=== PATIENT | male | born 1955 | race Caucasian/White ===

== ENCOUNTER 2016-09-04 06:44 | Day surgery (SDC) | payer OTHER ==
[2016-09-04] VITALS (7 sets, daily range): BP systolic 116–148; BP diastolic 75–87; PULSE 46–66; RESP 10–16; O2SAT 95–99
[~2016-09-04] VITALS: Ht 182.9 cm; Wt 96.0 kg
[~2016-09-04 06:44] MED LIST: IBUP400T22 PO; KEN25CR EXT; Lactated Ringer's 1,000 ML IV SCH
[2016-09-04] MEDS ORDERED: MetoCLOpramide 5 mg/mL 2 mL Inj ONE (06:45)
[2016-09-04] MEDS ORDERED: fentaNYL-PF 50 mCg/mL 2 mL Inj ONE (06:45)
[2016-09-04] MEDS ORDERED: Ondansetron 2 mg/mL 2 mL Inj ONE (06:45)
[2016-09-04] MEDS ORDERED: Propofol 10,000 mCg/mL 20 mL Inj ONE (06:45)
[2016-09-04] MEDS ORDERED: Lactated Ringer's 1,000 ML IV ONE (07:32)
[2016-09-04] MEDS ORDERED: Ondansetron 2 mg/mL 2 mL Inj IVPUSH PRN (09:00)
[2016-09-04] MEDS ORDERED: Dexamethasone 4 mg/mL Inj IVPUSH PRN (09:00)
[2016-09-04] MEDS ORDERED: HYDROmorphone 1 mg/mL Inj IVPUSH PRN (09:00)
[2016-09-04] MEDS ORDERED: Lactated Ringer's 1,000 ML IV SCH (09:00)
[2016-09-04] MEDS ORDERED: fentaNYL-PF 50 mCg/mL 2 mL Inj IVPUSH PRN (09:00)
[2016-09-04] MEDS ORDERED: MetoCLOpramide 5 mg/mL 2 mL Inj IVPUSH PRN (09:00)
[2016-09-04] MEDS ORDERED: Lactated Ringer's 500 ML IV PRN (09:00)
[2016-09-04] MEDS ORDERED: EPHEDrine Sulfate 50 mg/mL Inj IVPUSH PRN (09:00)
[2016-09-04] MEDS ORDERED: Phenylephrine 10,000 mCg/mL Inj IVPUSH PRN (09:00)
--- NOTE | 2016-09-04 09:00 | PCM.HPANE ---
Patient Data Surgeon Admitting Provider: Attending Provider:Nathan Charles MD Primary Care Physician:Hung Reyes Other Provider:Mitra Terry Anesthesia Reason for Visit Right Kidney Stone Ht/WT & BMI Height (Feet): 6 Height (Inches): 0.00 Weight (Kilograms): 96.000 Body Mass Index 28.00 Allergies Coded Allergies: No Known Allergies (Unverified , 09/02/16) Past Anesthesia History Anesthesia History: Denies:: Anesthesia Reactions, Malignant Hyperthermia Diabetes History Hx Diabetes?: No MRSA MRSA: No Medications Home Meds Incl Beta Selina: No Reported Medications Ibuprofen 400 Mg [id number] Mg PO Q8H PRN For Pain Ref 0 09/02/16 Triamcinolone Acet (Triamcinolone Acetonide Cream)1 Applic/0.25 Gm Cr1 Applic EXT BID #60 GM Ref 0 01/17/16 History History of ENT Problems?: Yes Other HEENT Pertinent History: S/P DENTAL IMPLANTS, WISDOM TEETH EXTRACTIONS Hx of Heart Problems?: No Cardiovascular History: Positive for:: Irregular Heartbeat (natural bradycardia - resting HR 48 on average) Denies:: AICD Heart Murmur Hypertension Pacemaker Hx of Respiratory Problem?: No Respiratory History: Denies:: Oxygen Administration Use of C-PAP Machine Hx Neurologic Problems?: Yes Other Neurological Pertinent: HX HSV Hx of GI Problems?: Yes Gastrointestinal History: Denies:: Rectal Bleeding (HX COLON POLYPS) Other GI Pertinent History: S/P UMBILICAL HERNIA RPR Hx of Problems?: Yes Genitourinary History: Positive for:: Kidney Stones (S/P LT ESWL/STENT RT KIDNEY STONE=CURRENT PROBLEM) Other Pertinent History: C/OF NOCTURIA Male Hx: Positive for:: Testicular Surgery (S/P VASECTOMY) Denies:: Prostate Problems Scrotal Mass Skin History: Positive for:: History Skin Disorders? (psoriasis-extremities) Denies:: Pressure Ulcers Hx Musculoskeletal Problems?: Yes Musculoskeletal History: Positive for:: Musculoskeletal Trauma (HX FX 1964) Hx of Psycho/Social Problems?: No Hx Surgeries?: Yes (WISDOM TEETH EXTRACTIONS,DENTAL IMPLANTS,UMB HERNIA RPR, VASECTOMY,LT ESWL/S) Hx Any Other Health Problems?: No Other History: Denies:: Cancer Endocrine Disease Hospitalization Thyroid Disease History Blood Transfusions: Denies:: Blood Transfusions Hx Diabetes: No Hx Alcohol Use: YesHx Substance Use: No Smoking Status: Former Smoker Have You Smoked inLast 12 mo: No Stop/Bang S-Snoring: Do You Snore Loudly: No T-Tired: feel tired, fatigued: No O-Obsered: Observed not breath: No P-Blood Pressure: treated: No B- Body Mass Index > 35 kg/m2: No A- Age over 50: Yes N- Neck Large Circumference: No G- Gender Male: Yes ANDREA Total Score: 2 Risk Assessment Category Category 1A: Patient has history of documented sleep apnea, and HAS NOT received any narcotic, sedative or anesthesia administration during this stay. Category 1B: Patient has history of documented sleep apnea, and HAS received any narcotic , sedative or anesthesia administration during this stay Category 2: Patient has SUSPECTED Obstructive Sleep Apnea, and HAS received any narcotic , sedative or anesthesia administration during this stay. Category 3: Patient has SUSPECTED Obstructive Sleep Apnea and HAS NOT received narcotic, sedative or anesthesia administration during this stay. Category 4: Outpatient in Procedural Areas with known sleep apnea or who screen positive for High Risk via the STOP/BANG questionnaire. Exam Exam Vital Signs Vital Signs Date Time Temp Pulse Resp B/P Pulse Ox O2 Delivery O2 Flow Rate FiO2 09/04/16 07:15 51 14 148/79 99 Room Air General Appearance: Alert, Oriented X3, Cooperative, No Acute Distress HEENT/AIRWAY: MP 2 Lungs: Clear to Auscultation Heart: Exam Unremarkable Meds/Labs/Diagnostics Admission Meds Current Medications Lactated Ringer's (Lr) 1,000 ml @ ud STK-MED ONCE IV Last administered on 09/04t 07:32; Start 09/04/16 at 07:32; Stop 09/04/16 at 07:33; Status DC Plan Impression Patient chart reviewed, patient interviewed and anesthestic plan with risks, benefits, and alternatives discussed, and informed consent obtained. NPO Status: @2029 ASA Physical Status: ASA2 Mod Systemic Disease Anesthetic Plan: GA Bene/Risks/Altern/Consents: Yes HP Complete Prior to Induction: Yes Enrike Rees MD Sep 04, 2016 07:42
--- NOTE | 2016-09-04 09:28 | DRSVH ---
PROCEDURE: X-RAY KUB ([id number]) INDICATIONS: RIGHT KIDNEY STONE TECHNIQUE: One view of the abdomen acquired. COMPARISON: [facility], , KUB XRAY (1 VIEW ABDOMEN), 08/16/2016, 12:19. FINDINGS: Surgical changes and devices: None. Bowel: Bowel gas pattern is normal. Soft tissues: 8mm diameter right renal calculus is unchanged when compared with the study dated 08/16. Probable phleboliths are present in the left hemipelvis.. Visualized solid organ contours appea r normal in size. Bones: No suspicious bony lesions. IMPRESSION: Stable right nephrolithiasis. Dictated by: Micheline Olivera M.D. on 09/04/2016 at 9:26 Approved by: Micheline Olivera M.D. on 09/04/2016 at 9:26
--- NOTE | 2016-09-04 09:54 | PCM.SURGPO ---
Immediate Operative Note Date of Surgery: Sep 04, 2016 Pre Operative Diagnosis R renal calculus Post Operative Diagnosis R renal calculus Procedure Extracorporeal shock wave lithotripsy of R renal calculus Surgeon and [employer] Surgeon: Nathan Charles MD Assistants: None Findings Pre-op KUB showed a 8 x 5 mm R lower pole renal calculus. ESWL of R renal calculus was performed at a rate of 60, up to a maximum energy level of 5, with a total of 2000 shocks administered. Evidence for excellent fragmentation of calculus was seen on post-ESWL fluoroscopy. Of note, a 2 minute pause was administered after the initial 200 shocks to aid in stone fragmentation. Complications There were no periprocedural complications identified. Surgical Specimen Removed: No Specimen sent to Pathology: No Anesthetic Administered: GA Grafts, Implants: None Output, Estimated Blood Loss: 0 Blood Admin during surgery: No Additional information Patient to return to see Dr. Currie in 2 weeks for post-op visit, with a KUB prior to appt. Nathan Charles MD Sep 04, 2016 09:54
--- NOTE | 2016-09-04 09:58 | PCM.DISURG ---
Surgical Discharge Instruction Date of Service Sep 04, 2016 Dates of Hospitalization Date of Hospital Admission Sep 04, 2016 Providers Admitting Physician: Nathan Charles MD Primary Care Physician: Hung Reyes Attending Physician: Nathan Charles MD Discharge Diagnosis Discharge Diagnosis R renal calculus Post Operative diagnosis R renal calculus Diet Discharge Diet: No restrictions, Other (Drink at least 10-12 8oz. glasses (3 liters) of fluids per day) Activity Discharge Activity-General: No restrictions, No driving while taking narcotic Dressing and Incisional Care Hygiene: May shower Additional Instructions Discharge Instructions Strain all urine Follow Up Plan Follow-up Provider (F9): Priscilla Currie MD Follow-up appointment: Weeks (2 weeks for post-op visit, with a KUB prior to appt.) Call your provider for: Fever, Chills, Vomiting, Other (Pain uncontrolled by pain medications) Nathan Charles MD Sep 04, 2016 09:58
[2016-09-04] MEDS ORDERED: HYDROcodone-APAP 5-325 mg Tablet PO PRN (10:05)
--- NOTE | 2016-09-04 10:56 | PCM.ANEP1 ---
Post Anesthesia Phase 1 PACU Phase 1 Assessment Date of Service: Sep 04, 2016 Vital Signs Vital Signs Date Time Temp Pulse Resp B/P Pulse Ox O2 Delivery O2 Flow Rate FiO2 09/04/16 10:19 46 16 133/76 99 Room Air 09/04/16 09:58 49 15 135/75 97 Room Air 09/04/16 09:55 36.9 51 16 129/77 96 Room Air 09/04/16 09:50 51 15 132/82 95 Room Air 09/04/16 09:45 53 11 116/84 95 Room Air 09/04/16 09:39 36.6 66 10 144/87 96 Room Air 09/04/16 07:15 51 14 148/79 99 Room Air Anesthetic Administered: GA Level of Alertness: Awake, talking CUEVAS's with Equal Strength: Yes Pain: No Nausea or Vomiting: No Oxygen Delivery: Room Air Lungs: Clear to Auscultation Dermatome Level: Full Sensation Enrike Rees MD Sep 04, 2016 10:56
--- NOTE | 2016-09-04 10:56 | PCM.ANEP2 ---
Post Anesthesia Evaluation ASA/CMS Post Anesthesia VS in Patient's Normal Range?: Yes Resp Stable; Airway Patent?: Yes CV Function & Hydration Stable: Yes Mental Status Recovered?: Yes Pain control Satisfactory?: Yes N/V Control Satisfactory?: Yes Enrike Rees MD Sep 04, 2016 10:56
--- NOTE | 2016-09-06 05:18 | OP ---
[address] [address] OPERATIVE REPORT PATIENT: ELHAM BOLAND : 1955 MR#: [id number] ADMIT: 09/04/2016 JOB ID: [id number] DATE OF SURGERY: 09/04/2016 PREOPERATIVE DIAGNOSIS(ES): Right renal calculus. POSTOPERATIVE DIAGNOSIS(ES): Right renal calculus. PROCEDURE: Extracorporeal shockwave lithotripsy of right renal calculus. SURGEON: Nathan Charles MD. EDUCATIONAL TECHNOLOGY COORDINATOR: None. ANESTHESIA: General. EBL: 0 mL. SPECIMENS: None. DRAINS: None. COMPLICATIONS: None. CONDITION: Stable. FINDINGS: Preoperative KUB showed an 8 x5 mm right lower pole renal calculus. ESWL of right renal calculus was performed at a rate of 60 up to a maximum energy level of 5 with a total of 2000 shocks administered. Evidence for excellent fragmentation of calculus was seen on post ESWL fluoroscopy. Of note, a 2 minute pause was administered after the initial 200 shocks to aid in stone fragmentation. INDICATIONS: The patient is a 60-year-old male followed by Dr. Currie, seen by Dr. Currie in the office on August 21, 2016, with a right renal calculus. The patient now presents for extracorporeal shockwave lithotripsy of right renal calculus. DESCRIPTION OF PROCEDURE: The patient was brought to the operating room and placed supine on the operating room table. Sequential compression device boots were placed. General anesthesia was administered. The patient was left in supine position. Preoperative KUB had showed an 8 x5 mm right lower pole renal calculus. Extracorporeal shockwave lithotripsy of right renal calculus was performed at a rate of 60 up to a maximum energy level of 5 with a total of 2000 shocks administered. Evidence for excellent fragmentation of the calculus was seen on post ESWL fluoroscopy. Of note, a 2 minute pause was administered after the initial 200 shocks to aid in stone fragmentation. The patient was awakened from general anesthesia and transferred to the recovery room in stable condition. The patient tolerated the procedure well. PLAN: Plan is for the patient to return to see Dr. Currie in the office in two weeks for a postoperative visit with a KUB prior to the appointment. DESIRE
== END 2016-09-04 23:59 | disposition home or self-care (01) ==
LOC: SAS 06:44
PROVIDERS: ATTEND Urology
DX: N20.0 Calculus of kidney (principal)
CPT/HCPCS: 50590; 74000; J2405; J2765; J7120